=== PATIENT | female | born 1970 | race Caucasian/White ===

== ENCOUNTER → 2016-12-17 | Outpatient (CLI) | payer OTHER ==
[~2016-12-17] MED LIST: FEXO1TAB49 PO
[2016-12-17 15:57] LABS: BASO % 0.3 %; BASO ABS # 0.02 K/uL (0-0.2); COMPLETE YES; EOS % 0.3 %; HEMATOCRIT 41.4 % (37-47); IG% 0.1 %; LYMPH ABS # 2.62 K/uL (1.2-3.4); MEAN CELL VOLUME 91.6 fL (80-100); MEAN CORPUSCULAR HEMOGLOBIN 31.2 pg (25-34); MEAN CORPUSCULAR HGB CONC 34.1 g/dl (32-36); MEAN PLATELET VOLUME 10.4 fL (7.4-10.4); MONO % 5.1 %; NEUT % 60.2 %; PLATELET COUNT 264 K/uL (130-400); RED BLOOD COUNT 4.52 M/uL (4.2-5.4); WHITE BLOOD COUNT 7.71 K/uL (4.8-10.8)
[2016-12-17 17:16] LABS: BLOOD UREA NITROGEN 7 mg/dl (7-18); CALCIUM 9.2 mg/dl (8.5-10.1); CARBON DIOXIDE 28 mmol/L (21-32); CHLORIDE 106 mmol/L (98-107); CREATININE 0.74 mg/dl (0.60-1.20); GLUCOSE 106 mg/dl (70-99); POTASSIUM 3.4 mmol/L (3.5-5.1); SODIUM 140 mmol/L (136-145)
[2016-12-17 17:27] LABS: ALB/GLOB RATIO 1.1 (0.9-2); ALKALINE PHOSPHATASE 81 U/L (45-117); ALT/SGPT 63 U/L (12-78); AST/SGOT 26 U/L (15-37); C-REACTIVE PROTEIN 0.38 mg/dl (0-0.29); FERRITIN 45.2 ng/ml (8.0-388.0)
[2016-12-21 16:29] LABS: T3 REVERSE **TC 90963 12 ng/dL (8-25)
== END | disposition home or self-care (01) ==
LOC: C.LAB 14:24
PROVIDERS: ATTEND Chiropractor
DX: M79.1 Myalgia (principal)